=== PATIENT | female | born 1955 | race Caucasian/White ===

== ENCOUNTER 2021-07-23 10:05 | Emergency (ER) | payer MEDICARE, OTHER ==
[~2021-07-23] VITALS: Ht 165.1 cm; Wt 90.7 kg
[2021-07-23 10:07] VITALS: BP 163/70
== END 2021-07-23 12:01 | disposition home or self-care (01) ==
LOC: ER 10:05
DX: M25.562 Pain in left knee (principal); I10 Essential (primary) hypertension; Z88.2 Allergy status to sulfonamides
CPT/HCPCS: 73562